=== PATIENT | male | born 1930 | race Caucasian/White ===

== ENCOUNTER 2016-10-04 18:49 | Inpatient (IN) | payer OTHER, BC ==
[~2016-10-04] VITALS: Ht 185.4 cm; Wt 83.0 kg
--- NOTE | ~2016-10-04 | HC ---
[facility] [place] [address] CONSULTATION Name: NATANAEL HERRERA Room #: 463-P ADM IN M.R.#: [id number] Admission: 10/04/16 Attend Phys: Edwin Baer MD Discharge: Date of : 31 Report #: [id number] THIS REPORT FOR: //name// CC: Edwin Baer REASON FOR CONSULTATION: Cardiomyopathy, atrial fibrillation, sluggishness, weakness is the reason for the consultation. HISTORY OF PRESENT ILLNESS: The patient is an 85-year-old gentleman with a complicated history including coronary artery disease with an acute inferior myocardial infarction complicated by heart block, atrial fibrillation and congestive heart failure. This was in 10/2015. He have been getting along. He has a solitary kidney. Now presents with several days of generalized malaise. He has had a nonproductive cough and low grade fevers. He saw Dr. Monreal on Thursday of last week and felt well at that time. He tells me that his last nuclear stress study was in either March or April and was nonischemic. He denies orthopnea or paroxysmal nocturnal dyspnea. His weights, he watches very closely and have been stable. No history of palpitations, near syncope, or syncope. He tells me that every family member that he has been around has had a viral infection. This lasted about 10 days to 2 weeks. He has been sleeping more than usual. This combination of symptoms is what has been seen with others in his family with the same viral type illness. ALLERGIES: No known drug allergies. MEDICATIONS: Include atorvastatin 40 mg daily, glimepiride 2 mg twice daily, Flomax, apixaban 2.5 mg twice daily, atenolol 25 mg daily, finasteride, torsemide 10 mg daily, digoxin. PAST MEDICAL HISTORY: Medical records have been reviewed and include a history of coronary artery disease, colon resection for cancer in 2001 and nephrectomy for renal cell cancer, adult onset of diabetes, chronic back pain. Ejection fraction was in the 40% range. SOCIAL HISTORY: He is , nonsmoker, nondrinker. FAMILY HISTORY: Unremarkable for premature coronary disease. REVIEW OF SYSTEMS: All systems negative except as that noted above. PHYSICAL EXAMINATION: GENERAL: A pleasant gentleman in no distress. VITAL SIGNS: Blood pressure is 120/61, heart rate is 60, temperature is 100.7 degrees. HEENT: There are neither xanthelasma, subcutaneous xanthomata, oral mucosal or digital cyanosis or kyphoscoliosis present. CHEST: Reveals clear lung sorenson. [address] [address] CONSULTATION Name: NATANAEL HERRERA BARATARIA Room #: 463-[facility] IN M.R.#: [id number] Admission: 10/04/16 Attend Phys: Edwin Baer MD Discharge: Date of : 31 Report #: [id number] CARDIOVASCULAR: Irregularly irregular rhythm with a normal S1, S2. No murmurs or rubs. ABDOMEN: Soft and nontender. EXTREMITIES: Without cyanosis, clubbing or edema. Radial pulses are 2+. NEUROLOGIC: He is alert with a nonfocal exam. EKG: Atrial fibrillation. LABORATORY DATA: Sodium 138, potassium 3.6, creatinine 2.2. ProBNP 5504. White cell count 7.1, hemoglobin 15, platelet count 90, 12%. Chest x-ray is no acute process. IMPRESSION: 1. Malaise, fatigue, low grade fevers, suspect underlying viral illness. 2. Moderate ischemic cardiomyopathy. 3. Chronic kidney disease; chronic, single kidney. 4. Dyslipidemia. 5. Hypertension. 6. Chronic systolic heart failure. RECOMMENDATIONS: 1. Obtain records from office regarding recent evaluation. 2. Continue usual cardiovascular medications. 3. I do not suspect a primary cardiac etiology to his presenting symptoms, but more likely viral syndrome. At this point, no further cardiovascular testing is needed. BNP elevation is anticipated in his age group with advanced kidney disease, clinically he does not have signs of significant volume overload. <ELECTRONICALLY SIGNED> By: Jackson Crawford MD, [facility] 10/06/16 1744 0858 1251 Jackson Crawford MD, FAC /nt
--- NOTE | ~2016-10-04 | EKG ---
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 : 1930 Requested By: Nicolas Crump Order Number: [id number] MD: Jackson Crawford Measurements Intervals [place] Rate: 79 P: MI: QRS: 8 QRSD: 93 T: 63 QT: 347 QTc: 398 Interpretive Statements Atrial fibrillation Nonspecific ST segment abnormality Compared to ECG 03/14/2016 15:21:53 No significant change was found Electronically Signed On 10-05-2016 11:51:45 CDT by Jackson Crawford [email or web address] <ELECTRONICALLY SIGNED> By: Jackson Crawford MD, [facility] 10/05/16 1151 99 99 Jackson Crawford MD, FAC /EPI
--- NOTE | ~2016-10-04 | H ---
[facility] [place] [address] HISTORY AND PHYSICAL Name: NATANAEL HERRERA Room #: 463-P [facility] IN M.R.#: [id number] Admission: 10/04/16 Attend Phys: Edwin Baer MD Discharge: 10/06/16 Date of : 31 Report #: [id number] THIS REPORT FOR: //name// CC: Edwin Baer DATE OF SERVICE: 10/05/2016 DATE OF ADMISSION: 10/04/2016 CHIEF COMPLAINT: Generalized weakness. HISTORY OF PRESENT ILLNESS: The patient is an 85-year-old male with underlying coronary artery disease and CHF who presented to the ER in the evening for generalized malaise and weakness. He has felt just had no energy. He has had some cough recently. His recently had an upper respiratory infection as well. PAST MEDICAL HISTORY: Significant for: 1. CHF. 2. Coronary artery disease. 3. Stent in 2014. 4. Prior colon cancer resection 2001. 5. Resection of the left kidney for renal cancer in 2006. 6. Diabetes mellitus. 7. BPH. 8. Atrial fibrillation, chronic. MEDICATIONS: Atorvastatin 40 mg a day, glimepiride 2 mg b.i.d., tamsulosin 0.4 mg a day, Eliquis 2.5 mg b.i.d., atenolol 20 mg a day, finasteride 5 mg a day, Colace 100 mg b.i.d., torsemide 10 mg a day, Tylenol p.r.n., digoxin 0.125 mg daily. REVIEW OF SYSTEMS: CONSTITUTIONAL: Positive for malaise. HEENT: No headaches, visual changes. CHEST: He has cough, he has shortness of breath and sputum production. No chest pain. GASTROINTESTINAL: No nausea, vomiting, diarrhea or constipation. GENITOURINARY: No burning or frequency. Does have BPH symptoms otherwise. EXTREMITIES: No significant swelling or joint pain. SKIN: No rashes or wounds. NEUROLOGIC: No new numbness or weakness. PHYSICAL EXAMINATION: VITAL SIGNS: Blood pressure 148/68, pulse 60, respiratory rate 18. He is afebrile. O2 sat was 99%, his weight is 193 pounds. [facility] [address] [place] [address] HISTORY AND PHYSICAL Name: NATANAEL HERRERA [place] Room #: 463-P [facility] IN M.R.#: [id number] Admission: 10/04/16 Attend Phys: Edwin Baer MD Discharge: 10/06/16 Date of : 31 Report #: [id number] GENERAL: The patient is awake and alert, feeling better this morning. He reports he is awake and alert. His mucous membranes are moist. NECK: Supple, without adenopathy, thyromegaly or bruits. CHEST: Shows decreased breath sounds in both bases. No focal crackles or wheezes. CARDIOVASCULAR: Irregular rate in the 80s. ABDOMEN: Obese, soft, nondistended, nontender, no masses. Bowel sounds are active. No hepatosplenomegaly. EXTREMITIES: Show no edema. Pulses are intact. SKIN: Grossly intact with no rashes or wounds. DIAGNOSTIC DATA: EKG showed AFib with rate of 71, no ST segment changes. LABORATORY DATA: Sodium 139, potassium 4.6, chloride 101, bicarbonate 13, BUN 22, creatinine 2.0, glucose 148. Troponin less than 0.04. BNP 4665. WBC 7.4, hemoglobin 15.9, hematocrit 46.1, platelet count 94, segs 81, lymphs 7, monos 11. Chest x-ray shows no acute process. ASSESSMENT: 1. Acute dyspnea. 2. Acute congestive heart failure, systolic, chronic. 3. Upper respiratory tract infection most likely viral. PLAN: We will admit, give IV Lasix. Consult Cardiology, renew his home meds. I suspect he showed improve. I think this is a viral infections has triggered his heart failure, is fairly mild. He is always showing excellent improvement in his symptoms and diuresing with the IV dose. We will get him ambulatory today and hopefully he will be discharged to home by tomorrow. We will monitor his electrolytes closely and also monitor his renal function. <ELECTRONICALLY SIGNED> By: Edwin Baer MD 10/09/16 0725 0730 1207 Edwin Baer MD /nt
--- NOTE | ~2016-10-04 | 2DMMODE ---
[facility] [address] [place] [address] 2 D/M-MODE ECHOCARDIOGRAM Name: NATANAEL HERRERA [place] Room #: 463-P [facility] IN M.R.#: [id number] Admission: 10/04/16 Attend Phys: Edwin Baer, Discharge: Date of : 31 Date of Service: 10/06/16 0939 Report #: [id number] THIS REPORT FOR: //name// APPROVED REPORT Study performed: 10/06/2016 08:54:33 EXAM: Comprehensive 2D, Doppler, and color-flow Echocardiogram Patient Location: Echo lab Room #: 463 Blood Pressure: 108/61 mmHg HR: 69 bpm Rhythm: Atrial Fibrillation Other Information Study Quality: Good Indications Ischemic cardiomyopathy. Hx: Stent, HTN, chronic afib, DM 2D Dimensions RVDd: 31.94 mm LVEF(%): 33.98 (>50%) IVSd: 14.34 (7-11mm) LVOT Diam: 22.64 (18-24mm) LVDd: 42.05 mm PWd: 10.25 (7-11mm) Ascending Ao: 37.40 (22-36mm) LVDs: 35.33 (25-40mm) Aortic Root: 36.69 mm Villasenor's LVEF: 33.98 % Volumes Left Atrial Volume (Systole) Single Plane 4CH: 61.89 mL Single Plane 2CH: 68.78 mL LA ESV Index: 35.00 mL/m2 Aortic Valve AoV Peak Reinaldo.: 2.08 m/s AO Peak Gr.: 17.47 mmHg LVOT Max P.11 mmHg AO Mean Gr.: 10.18 mmHg AO V2 Mean: 1.51 m/s LVOT Max V: 0.88 m/s AO V2 VTI: 40.19 cm CHARLIE Vmax: 1.70 cm2 [facility] [place] [address] 2 D/M-MODE ECHOCARDIOGRAM Name: NATANAEL HERRERA [place] Room #: 463-P [facility] IN M.R.#: [id number] Admission: 10/04/16 Attend Phys: Edwin Baer, Discharge: Date of : 31 Date of Service: 10/06/16 0939 Report #: [id number] Mitral Valve MV Decel. Time: 198.61 ms MV E Max Reinaldo.: 1.15 m/s IVRT: 56.52 ms Pulmonary Valve PV Peak Reinaldo.: 0.96 m/s PV Peak Gr.: 3.71 mmHg Tricuspid Valve TR Peak Reinaldo.: 2.54 m/s RAP Estimate: 5.00 mmHg TR Peak Gr.: 25.80 mmHg RVSP: 31.00 mmHg Left Ventricle The left ventricle is normal size. Mild inferoseptal hypokinesis Mild basal septal hypertrophy is present. Left ventricular systolic function is mildly decreased. LVEF is 45-50%. This study is not technically sufficient to allow evaluation of the LV diastolic function due to atrial fibrillation. Right Ventricle The right ventricle is normal size. The right ventricular systolic function is normal. Atria Left atrium is dilated. Right atrium is dilated. Aortic Valve Aortic valve is moderately calcified. Trace aortic regurgitation. Mild aortic stenosis. Mitral Valve Moderate mitral annular calcification. Moderate mitral regurgitation. Tricuspid Valve The tricuspid valve is normal in structure. There is mild tricuspid regurgitation. The right atrial pressure is estimated at 5 mmHg. There is mild pulmonary hypertension with an estiamted PAP of 31mmHg. Pulmonic Valve The pulmonary valve is normal in structure. Trace pulmonic regurgitation. Great Vessels The aortic root measures at the upper limits of normal. [facility] [address] [place] [address] 2 D/M-MODE ECHOCARDIOGRAM Name: NATANAEL HERRERA [place] Room #: 463-P [facility] IN .R.#: [id number] Admission: 10/04/16 Attend Phys: Edwin Baer, Discharge: Date of : 31 Date of Service: 10/06/16 0939 Report #: [id number] aorta measures at the upper limites of normal. IVC is normal in size and collapses >50% with inspiration. Pericardium There is no pericardial effusion. <Conclusion> Left ventricular systolic function is mildly decreased. Mild inferoseptal hypokinesis. LVEF 45-50%. Both atria are dilated. Aortic valve is moderately calcified. Mild aortic stenosis. Moderate mitral annular calcification. Moderate mitral regurgitation. Pulmonary artery presure of 30-35mmHg. There is no pericardial effusion. <ELECTRONICALLY SIGNED> By: Jackson Crawford MD, [facility] 10/06/16938 8 8 Jackson Crawford MD, FAC /INF
[~2016-10-04 18:49] MED LIST: AMARYL2 MG PO; ASPIR 8181 MG PO; ATORVASTATIN CA40 MG PO; AZITHROMYCIN 2250 MG PO; COLACE100 MG PO; COREG6.25 MG PO; DEMADEX20 MG PO; DIGOXIN125 MCG PO; ELIQUIS2.5 MG PO; FINASTERIDE5 MG PO; FLOMAX0.4 MG PO; PACERONE 200 M200 M1 PO; PLAVIX 75 MG TA75 M1 PO; PROSCAR 5MG TABL5 MG PO; TENORMIN50 MG PO; TYLENOL325 MG PO
[2016-10-04 18:57] VITALS: BP 148/68
[2016-10-04 20:05] LABS: BASOPHILS 0.7 % (0.0-2.0); EOSINOPHILS 0.9 % (0.0-3.0); HEMATOCRIT 46.1 % (42.0-52.0); HEMOGLOBIN 15.9 gm/dL (14.0-18.0); LYMPHOCYTES 6.7 % (24.0-44.0); MCHC 34.5 g/dL (28.0-37.0); MCV 98.8 fL (80.0-100.0); MONOCYTES 10.9 % (1.0-8.0); PLATELET COUNT 94 thou/uL (150-400); POLYS 80.8 % (36.0-66.0); RBC 4.67 mil/uL (4.50-6.00); RDW 14.2 % (10.5-14.5); WBC 7.4 thou/uL (4.0-11.0)
[2016-10-04 20:07] LABS: ANION GAP 8 mmol/L (7-16); BUN 22 mg/dL (7-18); CALCIUM 9.1 mg/dL (8.5-10.1); CHLORIDE 101 mmol/L (98-107); CO2 30 mmol/L (21-32); GLUCOSE 148 mg/dL (74-106); POTASSIUM 4.6 mmol/L (3.5-5.1); SODIUM 139 mmol/L (136-145)
[2016-10-04 20:08] LABS: MANUAL DIFF NO
[2016-10-04 20:19] LABS: NT-PRO BRAIN NAT PEPTIDE 4665 pg/mL (<300); TROPONIN-I < 0.04 ng/mL (<0.04-0.07)
[2016-10-04 22:19] VITALS: BP 147/120
[2016-10-04 23:05] VITALS: BP 150/95
[2016-10-05 05:23] VITALS: BP 117/77
[2016-10-05 05:30] LABS: HEMATOCRIT 45.7 % (42.0-52.0); HEMOGLOBIN 15.4 gm/dL (14.0-18.0); MCH 33.3 pg (26.0-34.0); MCHC 33.8 g/dL (28.0-37.0); MCV 98.5 fL (80.0-100.0); PLATELET COUNT 90 thou/uL (150-400); RBC 4.64 mil/uL (4.50-6.00); RDW 14.3 % (10.5-14.5); WBC 7.1 thou/uL (4.0-11.0)
[2016-10-05 05:40] LABS: MANUAL DIFF YES
[2016-10-05 05:41] LABS: CALCIUM 8.8 mg/dL (8.5-10.1); CREATININE 2.2 mg/dL (0.7-1.3)
[2016-10-05 05:55] LABS: POTASSIUM 3.6 mmol/L (3.5-5.1)
[2016-10-05 07:31] VITALS: BP 124/61
[2016-10-05 09:31] LABS: ABSOLUTE NEUTROPHILS 5.3 thou/uL (1.4-8.2); ATYPICAL LYMPHS 2 %; MYELOCYTES 1 %; TOTAL CELL COUNT 100
[2016-10-05 09:32] LABS: LARGE PLATELETS OCCASIONAL
[2016-10-05 11:32] VITALS: BP 122/76
[2016-10-05 15:30] VITALS: BP 114/73
[2016-10-05 20:20] VITALS: BP 112/65
[2016-10-06 04:12] VITALS: BP 100/67
[2016-10-06 04:35] LABS: CALCIUM 8.3 mg/dL (8.5-10.1); POTASSIUM 3.6 mmol/L (3.5-5.1)
[2016-10-06 07:14] VITALS: BP 108/61
[2016-10-06 07:48] LABS: HEMATOCRIT 44.2 % (42.0-52.0); HEMOGLOBIN 15.1 gm/dL (14.0-18.0); MCHC 34.3 g/dL (28.0-37.0); MCV 99.1 fL (80.0-100.0); RBC 4.46 mil/uL (4.50-6.00); RDW 14.3 % (10.5-14.5); WBC 5.8 thou/uL (4.0-11.0)
[2016-10-06 11:46] VITALS: BP 100/57
[2016-10-06 16:01] VITALS: BP 105/63
[2016-10-06 17:50] VITALS: BP 105/63
== END 2016-10-06 18:17 | disposition home or self-care (01) | DRG 291 ==
LOC: ER 18:49 → EROBS 21:52 → 4W 21:52
PROVIDERS: Family Medicine; Nurse Practitioner
DX: I13.0 Hypertensive heart and chronic kidney disease with heart failure and stage 1 through stage 4 chronic kidney disease, or unspecified chronic kidney disease (principal); I50.23 Acute on chronic systolic (congestive) heart failure; I48.2 Chronic atrial fibrillation; I25.5 Ischemic cardiomyopathy; I25.10 Atherosclerotic heart disease of native coronary artery without angina pectoris; M54.9 Dorsalgia, unspecified; G89.29 Other chronic pain; N18.9 Chronic kidney disease, unspecified; J01.90 Acute sinusitis, unspecified; E78.5 Hyperlipidemia, unspecified; E11.22 Type 2 diabetes mellitus with diabetic chronic kidney disease; N40.0 Benign prostatic hyperplasia without lower urinary tract symptoms; Z85.038 Personal history of other malignant neoplasm of large intestine; Z95.5 Presence of coronary angioplasty implant and graft; Z90.5 Acquired absence of kidney; Z85.528 Personal history of other malignant neoplasm of kidney; Z90.49 Acquired absence of other specified parts of digestive tract; Z79.899 Other long term (current) drug therapy; I25.2 Old myocardial infarction
CPT/HCPCS: 10045

== ENCOUNTER → 2017-02-17 | Outpatient (CLI) | payer OTHER, BC | LOC: ULTRA 08:14 | DX: K76.89 Other specified diseases of liver (principal) ==

== ENCOUNTER 2017-02-22 11:33 | Inpatient (IN) | payer OTHER, BC ==
[~2017-02-22] VITALS: Ht 182.9 cm; Wt 80.3 kg
--- NOTE | ~2017-02-22 | EKG ---
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: : 1930 Requested By: Travis Santos Order Number: [id number] MD: Nakul Pace Measurements Intervals [place] Rate: 64 P: MD: QRS: -9 QRSD: 99 T: 12 QT: 419 QTc: 433 Interpretive Statements Atrial fibrillation Inferoposterior infarct, old Baseline wander in lead(s) V5 Compared to ECG 10/04/2016 19:00:11 Myocardial infarct finding now present ST (T wave) deviation no longer present Electronically Signed On 02-22-2017 23:27:14 CDT by Nakul Pace [email or web address] <ELECTRONICALLY SIGNED> By: Nakul Pace MD 02/22/17 2327 1138 1138 Nakul Pace MD /EPI
--- NOTE | ~2017-02-22 | H ---
[facility] [place] [address] HISTORY AND PHYSICAL Name: NATANAEL HERRERA Room #: 418-P [facility] IN M.R.#: [id number] Admission: 02/22/17 Attend Phys: Edwin Baer MD Discharge: 02/23/17 Date of : 31 Report #: [id number] THIS REPORT FOR: //name// CC: EDWIN [facility]umjohn [facility] center[facility] DATE OF SERVICE: 02/22/2017 CHIEF COMPLAINT: Dizziness. HISTORY OF PRESENT ILLNESS: The patient is an 86-year-old male with history of hypertension, history of CHF chronic secondary to systolic dysfunction, history of coronary artery disease, history of kidney cancer and liver cancer, presented to the Emergency Room complaining of dizziness. The patient was recently diagnosed with hemochromatosis and underwent a phlebotomy on Thursday. He normally has some dizziness when he gets up in the morning. The dizziness gets better when he sits at the side of the bed for a few minutes. Today, his dizziness persisted, which made him come to the Emergency Room. No history of any chest pain, no shortness of breath. No fever or chills. The patient denies any cough, expectoration. No nausea or vomiting, no abdominal pain. According to the patient's , the patient has had poor p.o. intake over the last few days. In the Emergency Room, his blood pressure was 131/63, EKG showed no acute abnormality. He does have history of atrial fibrillation. He was found to be orthostatic in the ER and the patient has been started on gentle IV fluid in the ER. The patient denies any focal numbness or weakness of the extremities. PAST MEDICAL HISTORY: Significant for CHF, last echocardiogram showed an EF of 40-45%, history of coronary artery disease status post stent in 2014, history of colon cancer resection in 2001, history of dissection of the left kidney for renal cancer in 2006, recently diagnosed with liver cancer and underwent a partial resection at [facility], history of cholecystectomy, history of diabetes, history of BPH, history of chronic atrial fibrillation. HOME MEDICATIONS: Reviewed, please look at the nursing documentation for home medications. ALLERGIES: No known drug allergies. SOCIAL HISTORY: No smoke, alcohol abuse, or illicit drug abuse. FAMILY HISTORY: Noncontributory for this 86-year-old male. REVIEW OF SYSTEMS: CONSTITUTIONAL: He has lost some weight, unable to quantify. No fever or chills. [facility] [address] [place] [address] HISTORY AND PHYSICAL Name: NATANAEL HERRERA Room #: 418-P DIS IN M.R.#: [id number] Admission: 02/22/17 Attend Phys: Edwin Baer MD Discharge: 02/23/17 Date of : 31 Report #: [id number] EYES: No change in vision. THROAT: Denies any sore throat. EAR: Denies any tinnitus or pain in his ear. He has reduced hearing since 2011. CARDIOVASCULAR: Denies any chest pain, no shortness of breath. RESPIRATORY: No cough or expectoration. GASTROINTESTINAL: No nausea, vomiting, abdominal pain. GENITOURINARY: No dysuria, hematuria. NEUROLOGIC: No focal numbness or weakness of the extremities. PSYCHIATRIC: No anxiety or depression. A 12-point review of system is negative other than the positive and negative dictated in the history of present illness and the review of system. PHYSICAL EXAMINATION: VITAL SIGNS: Revealed blood pressure ____, heart rate of 82 per minute, afebrile. GENERAL: The patient is awake and alert, not in acute respiratory distress. EYES: Pupils equal, reactive to light, nonicteric conjunctivae. THROAT: Appears normal. NECK: Supple, no JVD, no bruit, no lymphadenopathy. CARDIOVASCULAR: S1, S2. ____ S3, no murmur. CHEST: Bilateral air entry present, clear on auscultation. ABDOMEN: Soft, bowel sounds present. No mass, no organomegaly, no tenderness. PERIPHERY: No pedal edema. No calf tenderness. Dorsalis pedis 1+. NEUROLOGICAL: Pupils are equal, reactive to light. Extraocular movements intact. No facial asymmetry noted. Power is 5/5 in upper and lower extremity, no obvious sensory deficit noted. LABORATORY DATA: Reviewed. White count is 6.1, hemoglobin is 13.0, platelet is 110. He has chronic thrombocytopenia. His chemistry showed a BUN of 27, creatinine of 1.9. His baseline creatinine is 1.8. Blood glucose was 250. The BNP was 3100. He has chronically elevated BNP. EKG showed atrial fibrillation with inferoposterior infarct, rate is at [address] of the brain showed no acute abnormality. Chest x-ray showed no acute cardiopulmonary process. ASSESSMENT AND PLAN: 1. Dizziness, likely secondary to orthostatic hypotension. Could be related to his recent phlebotomy with reduced p.o. intake. We will hold off on his diuretics today. We will gently give him 500 mL normal saline and monitor his orthostasis. He will be monitored on telemetry floor. We will consult Cardiology. We will get serial troponin to rule out any cardiac event. 2. Atrial fibrillation. The patient will be continued on atenolol on Eliquis. 3. History of hypertension, on atenolol. This will be continued. 4. Diabetes. The patient will be continued on his present home medication. He will be placed on Accu-Chek and sliding scale insulin. 5. History of coronary artery disease status post stent in the past. [facility] [address] [place] [address] HISTORY AND PHYSICAL Name: NATANAEL HERRERA WILDROSE Room #: 418-P DIS IN M.R.#: [id number] Admission: 02/22/17 Attend Phys: Edwin Baer MD Discharge: 02/23/17 Date of : 31 Report #: [id number] 6. Deep venous thrombosis prophylaxis. The patient is on Eliquis. Treatment plan has been explained to the patient and the family at bedside in detail. <ELECTRONICALLY SIGNED> By: Issac Reno MD 02/23/17 1221 1305 1357 Issac Reno MD /nt
--- NOTE | ~2017-02-22 | HC ---
[facility] [place] [address] CONSULTATION Name: NATANAEL HERRERA Room #: 418-P ADM IN M.R.#: [id number] Admission: 02/22/17 Attend Phys: Edwin Baer MD Discharge: Date of : 31 Report #: [id number] THIS REPORT FOR: //name// CC: Edwin Begumssm health careahmet DATE OF SERVICE: 02/22/2017 INDICATION: Dizziness. HISTORY OF PRESENT ILLNESS: This is an 86-year-old gentleman presenting with complaints of dizziness starting this morning. Normally he gets dizziness when he stands up, lasting 2-3 seconds. Today, it persisted and he presented to the ER for evaluation. He denies any episodes of chest pains, shortness of breath, fever, chills or cough. There is no history of congestion. He was recently diagnosed with hemochromatosis and underwent his first phlebotomy last Thursday, with removal of 1 pint. Over the last 2 days, he has been on a trip and has had diminished p.o. intake. PAST MEDICAL HISTORY: CAD with inferior wall DC in 2014, undergoing placement of a stent to the left circumflex artery. His last nuclear stress test was in March 2016, revealing old inferior wall, inferolateral infarct. History of chronic AFib. History of chronic renal insufficiency with a solitary kidney. History of congestive heart failure with EF in the 45% range. Recently diagnosed with liver cancer, undergoing resection at [facility]. HOME MEDICATIONS: Please see the MAR for full details. ALLERGIES: None. SOCIAL HISTORY: Negative for tobacco use. FAMILY HISTORY: Negative for premature CAD. REVIEW OF SYSTEMS: A full 10-point review of systems performed. Only the pertinent positives and negatives are described in the HPI. PHYSICAL EXAMINATION: VITAL SIGNS: Blood pressure is 110/60, heart rate is 60 beats per minute. GENERAL APPEARANCE: An elderly appearing male in no acute respiratory distress. HEAD AND EYES: Normocephalic. Sclerae are anicteric. ENT: Oral mucosa moist. NECK: Supple, no JVD. LUNGS: Clear to auscultation. CARDIAC: Irregularly irregular. S1, S2 positive. ABDOMEN: Soft, nontender. Bowel sounds positive. [facility] [address] [place] [address] CONSULTATION Name: NATANAEL HERRERA [place]AM Room #: 418-P ADM IN M.R.#: [id number] Admission: 02/22/17 Attend Phys: Edwin Baer MD Discharge: Date of : 31 Report #: [id number] EXTREMITIES: No cyanosis, no edema. DIAGNOSTIC DATA: ECG reveals atrial fibrillation with a slow ventricular rate, nonspecific T-wave abnormalities. LABORATORY DATA: White count 6.1, hemoglobin is 13. Sodium is 147, creatinine is 1.9 at baseline, troponin is negative. ASSESSMENT AND PLAN: 1. Orthostatic hypotension/dizziness. He was found to have orthostatic blood pressure readings in the ER and treated with IV hydration. Probably due to a combination of his first phlebotomy, diuretic therapy and diminished oral intake. At this time, I would hold torsemide, as he has not exhibited any recent episodes of heart failure and he appears to be euvolemic on examination. 2. Coronary artery disease with prior history of myocardial infarction, clinically stable with no symptoms of angina. 3. Atrial fibrillation, rate control, continue with low dose beta lety and anticoagulation therapy. 4. Congestive heart failure, stable with no symptoms of congestion. 5. Diabetes mellitus. 6. Chronic renal insufficiency. Thank you for allowing me to participate in the care of your patient. <ELECTRONICALLY SIGNED> By: Bret Lopez MD 02/23/17 0830 1633 1729 Bret Lopez MD /nt
[2017-02-22 11:33] VITALS: BP 131/63
[2017-02-22 11:58] LABS: HEMATOCRIT 38.3 % (42.0-52.0); MCH 33.5 pg (26.0-34.0); MCHC 33.9 g/dL (28.0-37.0); MCV 98.9 fL (80.0-100.0); RBC 3.87 mil/uL (4.50-6.00); RDW 14.2 % (10.5-14.5); WBC 6.1 thou/uL (4.0-11.0)
[2017-02-22 12:07] LABS: ANION GAP 6 mmol/L (7-16); BUN 27 mg/dL (7-18); CALCIUM 8.5 mg/dL (8.5-10.1); CHLORIDE 104 mmol/L (98-107); CO2 27 mmol/L (21-32); CREATININE 1.9 mg/dL (0.7-1.3); GLUCOSE 250 mg/dL (74-106); SODIUM 137 mmol/L (136-145)
[2017-02-22 12:08] LABS: POTASSIUM 4.1 mmol/L (3.5-5.1)
[2017-02-22 12:16] LABS: TROPONIN-I < 0.04 ng/mL (<0.04-0.07)
[2017-02-22 13:24] VITALS: BP 109/51
[2017-02-22 16:30] VITALS: BP 113/63
[2017-02-22 16:33] VITALS: BP 109/68
[2017-02-22 16:35] VITALS: BP 108/57
[2017-02-22 19:45] LABS: ALBUMIN 3.1 g/dL (3.4-5.0); DIRECT BILIRUBIN 0.1 mg/dL (<0.1-0.3); TOTAL BILIRUBIN 0.4 mg/dL (<0.1-1.0); TOTAL PROTEIN 5.8 g/dL (6.4-8.2)
[2017-02-22 20:00] VITALS: BP 106/62
[2017-02-23 04:31] VITALS: BP 131/51
[2017-02-23 06:15] LABS: ABSOLUTE NEUTROPHILS 4.2 thou/uL (1.4-8.2); EOSINOPHILS 3.8 % (0.0-3.0); HEMATOCRIT 36.1 % (42.0-52.0); HEMOGLOBIN 12.1 gm/dL (14.0-18.0); LYMPHOCYTES 19.2 % (24.0-44.0); MCH 33.6 pg (26.0-34.0); MCHC 33.5 g/dL (28.0-37.0); MCV 100.3 fL (80.0-100.0); MONOCYTES 9.8 % (1.0-8.0); PLATELET COUNT 102 thou/uL (150-400); POLYS 66.2 % (36.0-66.0); RDW 14.4 % (10.5-14.5); WBC 6.4 thou/uL (4.0-11.0)
[2017-02-23 06:16] LABS: MANUAL DIFF NO
[2017-02-23 06:26] LABS: CALCIUM 8.4 mg/dL (8.5-10.1); CREATININE 1.6 mg/dL (0.7-1.3); POTASSIUM 3.6 mmol/L (3.5-5.1)
[2017-02-23 06:27] LABS: MAGNESIUM 1.9 mg/dL (1.8-2.4)
[2017-02-23 07:24] VITALS: BP 112/66
[2017-02-23 10:14] VITALS: BP 112/66
== END 2017-02-23 11:02 | disposition home or self-care (01) | DRG 312 ==
LOC: ER 11:33 → EROBS 12:41 → 4E 12:41 → ENTRNSPT 02-23 10:48 → EDTRNSPTSTS 02-23 10:50 → 4E 02-23 11:02
PROVIDERS: Emergency Medicine; Internal Medicine
DX: I95.1 Orthostatic hypotension (principal); N17.9 Acute kidney failure, unspecified; E44.1 Mild protein-calorie malnutrition; I50.9 Heart failure, unspecified; N18.9 Chronic kidney disease, unspecified; I25.10 Atherosclerotic heart disease of native coronary artery without angina pectoris; I48.2 Chronic atrial fibrillation; E11.22 Type 2 diabetes mellitus with diabetic chronic kidney disease; N40.0 Benign prostatic hyperplasia without lower urinary tract symptoms; E86.0 Dehydration; I25.2 Old myocardial infarction; Z95.5 Presence of coronary angioplasty implant and graft; Z85.038 Personal history of other malignant neoplasm of large intestine; Z90.5 Acquired absence of kidney; Z79.899 Other long term (current) drug therapy; Z85.05 Personal history of malignant neoplasm of liver; Z90.49 Acquired absence of other specified parts of digestive tract
CPT/HCPCS: 10183

== ENCOUNTER 2018-11-03 19:14 | Emergency (ER) | payer OTHER, BC ==
[~2018-11-03] VITALS: Ht 185.4 cm; Wt 83.0 kg
[~2018-11-03 19:14] MED LIST changes: +VITAMIN D1000 UNI1 PO
[2018-11-03] MEDS ORDERED: CENTRUM SILVER1 EAC2 PO (20:24)
[2018-11-03 21:30] VITALS: BP 140/77
== END 2018-11-03 21:26 | disposition home or self-care (01) ==
LOC: ER 19:14
DX: S83.8X2A Sprain of other specified parts of left knee, initial encounter (principal); I10 Essential (primary) hypertension; E11.9 Type 2 diabetes mellitus without complications; E78.5 Hyperlipidemia, unspecified; I48.2 Chronic atrial fibrillation; Z85.05 Personal history of malignant neoplasm of liver; Z90.5 Acquired absence of kidney; Z90.49 Acquired absence of other specified parts of digestive tract; Z85.528 Personal history of other malignant neoplasm of kidney; Z85.54 Personal history of malignant neoplasm of ureter; X58.XXXA Exposure to other specified factors, initial encounter; Y92.89 Other specified places as the place of occurrence of the external cause; Y93.89 Activity, other specified; Y99.8 Other external cause status

== ENCOUNTER → 2018-11-05 | Outpatient (CLI) | payer OTHER, BC ==
[~2018-11-05] MED LIST changes: +CENTRUM SILVER1 EAC2 PO
== END ==
LOC: MRI 08:46
DX: S83.282A Other tear of lateral meniscus, current injury, left knee, initial encounter (principal); M94.262 Chondromalacia, left knee; M25.462 Effusion, left knee; M71.22 Synovial cyst of popliteal space [Baker], left knee; X58.XXXA Exposure to other specified factors, initial encounter; Y93.89 Activity, other specified; Y92.89 Other specified places as the place of occurrence of the external cause; Y99.8 Other external cause status

== ENCOUNTER → 2019-08-05 | Outpatient (CLI) | payer OTHER, BC | LOC: MRI 07:00 | DX: M51.27 Other intervertebral disc displacement, lumbosacral region (principal); M47.817 Spondylosis without myelopathy or radiculopathy, lumbosacral region; M48.061 Spinal stenosis, lumbar region without neurogenic claudication ==

== ENCOUNTER → 2019-08-17 | Outpatient (CLI) | payer OTHER, BC | LOC: SJCVC 13:29 | DX: I25.10 Atherosclerotic heart disease of native coronary artery without angina pectoris (principal); I48.91 Unspecified atrial fibrillation; I25.5 Ischemic cardiomyopathy; I13.0 Hypertensive heart and chronic kidney disease with heart failure and stage 1 through stage 4 chronic kidney disease, or unspecified chronic kidney disease; E11.22 Type 2 diabetes mellitus with diabetic chronic kidney disease; N18.9 Chronic kidney disease, unspecified; I50.32 Chronic diastolic (congestive) heart failure; I50.20 Unspecified systolic (congestive) heart failure; E78.00 Pure hypercholesterolemia, unspecified; D68.59 Other primary thrombophilia; I35.0 Nonrheumatic aortic (valve) stenosis; I25.2 Old myocardial infarction; Z79.899 Other long term (current) drug therapy ==

== ENCOUNTER → 2019-09-14 | Outpatient (CLI) | payer OTHER, BC ==
[~2019-09-14] VITALS: Ht 185.4 cm; Wt 83.9 kg
[~2019-09-14] MED LIST changes: +ATENOLOL 25 MG25 M1 PO; -TENORMIN50 MG PO
--- NOTE | ~2019-09-14 | HPC ---
[facility] [place] [address] PAIN MANAGEMENT CONSULTATION Name: NATANAEL HERRERA Room #: REG CLMatthew Fuentes.#: [id number] Admission: 09/14/19 Attend Phys: Raz Mcclain DO Discharge: Date of : 31 Report #: [id number] THIS REPORT FOR: cc: Edwin Baer MD, Neal A. MD Johnson, James E. DO ~ CC: Raz Baer MD DATE OF SERVICE: 09/14/2019 REFERRING PHYSICIAN: Edwin Baer MD CHIEF COMPLAINT: Axial back pain. HISTORY OF PRESENT ILLNESS: As you know, the patient is an 88-year-old male who reports longstanding history of axial back pain that began in 2014. The patient denies specific injury or trauma that may have led to symptom development. He has trialled conservative treatment options including physical therapy, rest, relaxation, but has been precluded from utilizing the medication of choice to address facet arthropathy pain due to the use of chronic anticoagulant secondary to cardiovascular issues. He continues to experience pain for which he places pain up to a level of 7/10. Due to lack of improvement with more conservative treatment options, the patient was subsequently referred to our clinic. The patient has had physical therapy in 2014, but does not participate in these activities consistently. He underwent cardiovascular physical therapy as well, but does not participate in any of these activities either. He has been referred to our clinic to discuss treatment options for chronic axial back pain. The patient reports today his pain is periodic, describes the pain as aching, places current pain score at around 8/10, daily average of 8/10, worst pain has been is 10/10. The patient states that pain is exacerbated with prolonged standing, prolonged lifting or physical activity, improves with sitting. He has been referred to our clinic to discuss treatment options for axial back pain. PAST MEDICAL HISTORY: 1. Diabetes mellitus type 2. 2. Coronary artery disease, status post percutaneous stenting and chronic anticoagulation. 3. Liver cancer. 4. Colon cancer. 5. Bladder cancer. 6. Kidney cancer. 7. Degenerative joint disease. 8. Osteoarthritis. [facility] [address] [place] [address] PAIN MANAGEMENT CONSULTATION Name: NATANAEL HERRERA URBANDALE Room #: REG CLI Lauren.#: [id number] Admission: 09/14/19 Attend Phys: Raz Mcclain DO Discharge: Date of : 31 Report #: [id number] PAST SURGICAL HISTORY: 1. Colon surgery. 2. Bladder surgery. 3. Nephrectomy. 4. Percutaneous stenting of the coronary arteries. 5. Liver surgery. SOCIAL HISTORY: The patient denies current tobacco use. Denies IV or illicit drug use. Denies any chronic alcohol use. He is retired, retired years ago. He is not receiving workmen's compensation nor is he trying to obtain disability benefits. He is not in litigation in regards to pain. REVIEW OF SYSTEMS: Positive for cataracts, hearing loss with tinnitus, heart trouble status post percutaneous stenting and chronic anticoagulation, nocturia, nephrolithiasis, fatigue and weakness, non-insulin dependent diabetes. All other review of systems negative per 12-point review of systems other than those listed in history of present illness. Pain impact score 20/70 indicating mild interference of daily activities secondary to pain. ALLERGIES: No known drug allergies. CURRENT MEDICATIONS: Multivitamin 1 tab per day, torsemide 20 mg once a day. Finasteride 5 mg once a day, atenolol 25 mg once a day, Eliquis 2.5 mg b.i.d., tamsulosin 0.4 mg once a day, glimepiride 2 mg twice a day, atorvastatin 40 mg once a day. IMAGING: MRI lumbar spine obtained 08/05/2019, shows severe facet arthrosis at L4-L5 and L5-S1. There is no central canal stenosis, no neural foraminal stenosis. PQRS: The patient has known arthritic changes of the lumbar spine. No rheumatoid arthritis. He is placing pain intensity at 8/10. He is not a fall risk, has not had a fall in last 3 months. He is on blood thinners in the form of Eliquis taking twice a day. He is treated for hypertension, but not on any opioids and is not on any opioids for pain. He has a low opioid addiction potential. Pain impact score 20/70 indicating mild interference of daily activities secondary to pain. PHYSICAL EXAMINATION: VITAL SIGNS: Blood pressure 118/74, pulse 72, respiratory rate 16 and unlabored. The patient is 98% on room air, height 6 feet 1 inch tall, weight 285 pounds, BMI calculated 24.4. GENERAL: Well-developed, well-nourished, well-hydrated 88-year-old male [address] [address] PAIN MANAGEMENT CONSULTATION Name: NATANAEL HERRERA IRENE Room #: REG MAMADOU Cardenas#: [id number] Admission: 09/14/19 Attend Phys: Raz Mcclain, DO Discharge: Date of : 31 Report #: [id number] appearing stated age, pain is rated at 8/10. Speech fluent. The patient deemed a good historian. HEENT: Normocephalic, atraumatic. Pupils equal, round, reactive to light. LUNGS: Appear clear. The patient is providing no difficulty with completing full sentences. There is no cough or prolonged or tachypneic breathing. ABDOMEN: Appears soft, nontender. EXTREMITIES: Show no clubbing, no cyanosis, no edema. MUSCULOSKELETAL: Lower extremity strength is equal and symmetrical 5/5, intact to light touch from L1 through S2 dermatomes. Seated straight leg raising negative. Supine straight leg raising negative. Ana's test is negative. Modified Gaenslen's positive for axial low back pain. Lumbar provocation testing including extension, rotation, lateral flexion all intensify axial back pain with moderate restriction of motion. Forward flexion of lumbar spine does improve axial back pain. ASSESSMENT: 1. Lumbosacral spondylosis without radiculopathy. 2. Facet arthropathy of the lumbar spine. 3. Lumbar degeneration. 4. Chronic intractable pain. PLAN: 1. Based on today's physical exam and history the patient has provided, the description the patient uses in regards to pain and the location of symptoms, likely source of the patient's symptoms is the facet arthropathy pain. This is confirmed by MRI obtained 08/05/2019, which showed severe facet arthropathy changes at L4-L5 and L5-S1. I am pleased to advise the patient that the MRI shows no significant central canal neural foraminal stenosis. The patient and I discussed at length today the findings of his MRI and how it correlates to his symptoms. After this discussion, we discussed the potential treatment options we have for facet arthropathy pain. The following was discussed with the patient today. We discussed physical therapy, stretching exercises and core strengthening as a treatment course. This would be the most effective way to treat long-term symptoms. We discussed medication management utilizing low dose opioids for pain control as the patient is a non-candidate for nonsteroidal anti-inflammatories, the medication of choice for facet arthropathy pain. We discussed intra-articular facet injections, but given the extent and severity of the facet joints, these may be extremely difficult for the patient to tolerate and will likely provide minimal benefit from a long-term standpoint. We discussed medial branch nerve blocks and radiofrequency lesioning and then we discussed surgical options. After reviewing risks and benefits of all proposed treatment options, the patient chose to look towards medial branch blocks and radiofrequency lesioning. 2. 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 [address] PAIN MANAGEMENT CONSULTATION Name: NATANAEL HERRERA URBANDALE Room #: REG MAMADOU Cardenas#: [id number] Admission: 09/14/19 Attend Phys: Raz Mcclain DO Discharge: Date of : 31 Report #: [id number] 10/12/2019. He wishes to undergo the evaluation for which he will undergo an echocardiogram and an echo stress test. Once those results have been made available he would then consider the option of undergoing treatment from our standpoint as he does note he has to come off his Eliquis 3 days prior to the medial branch blocks and 3 days prior to radiofrequency lesioning, a total off of medication of 3 different times over a couple of week period. He will discuss this with Dr. Monreal. He was given information in regards to the release of medications for 3 days prior to each procedure to get confirmation, he could do so. 3. We did discuss the possibility of changing medications at this time. The patient does not wish to entertain medication management. He wishes to look towards more interventional treatments as presented above. 4. We wish to thank Dr. Baer for the referral of this patient to our clinic. We will keep you apprised of his response to treatment. We will await the patient's phone call after his visit with Dr. Monreal to establish the next appointment to begin medial branch nerve blocks and radiofrequency lesioning. 5. Again, we wish to thank Dr. Baer for the opportunity to see this patient in consultation. We will keep you apprised of response to treatment. By: [id number] Raz Mcclain DO /nt
[2019-09-14 13:00] VITALS: BP 118/74
--- NOTE | 2019-09-14 13:21 | NUR ---
Pain Clinic Assessment: 1. History of Osteoarthritis: NONE History of Rheumatoid Arthritis: NONE 2. Height: 6 ft. 1 in. 185.4 cm. Weight: 185.0 lb. oz. 83.916 kg. Patient's BMI: 24.4 3. Vital Signs: BP: 118/74 Pulse: 72 Resp: 16 Temp: 02 Sat: 98 ECG Mon: 4. Pain Intensity: 8 5. Fall Risk: Dizziness: Y Needs help standing or walking: N Fallen in the last 3 months: N Fall risk comments: 6. Patient on Blood Thinner: ELIQUIS 2.5 BID 7. History of Hypertension: Y 8. Opioid Therapy greater than 6 weeks: N Opiate Contract Signed: 9. Risk Assessment Tool Provided: 0-LOW RISK 10. Functional Assessment Tool: 11. Recreational Drug Use: Never Drug Type: Tobacco Use: Never Smoker Tobacco Type: Amount or Packs/day: How Many Years: Alcohol Use: No Frequency: Quant:
== END ==
LOC: PAIN 07:53
DX: M47.817 Spondylosis without myelopathy or radiculopathy, lumbosacral region (principal); M47.816 Spondylosis without myelopathy or radiculopathy, lumbar region; G31.89 Other specified degenerative diseases of nervous system; E11.9 Type 2 diabetes mellitus without complications; G89.29 Other chronic pain; Z98.890 Other specified postprocedural states; Z85.038 Personal history of other malignant neoplasm of large intestine; Z85.05 Personal history of malignant neoplasm of liver; Z85.51 Personal history of malignant neoplasm of bladder; Z85.528 Personal history of other malignant neoplasm of kidney; Z85.89 Personal history of malignant neoplasm of other organs and systems; Z79.899 Other long term (current) drug therapy

== ENCOUNTER → 2019-10-12 | Outpatient (CLI) | payer OTHER, BC | LOC: SJCVCIMAG 08:15 | DX: Z01.818 Encounter for other preprocedural examination (principal); I08.3 Combined rheumatic disorders of mitral, aortic and tricuspid valves; I42.9 Cardiomyopathy, unspecified; I48.21 Permanent atrial fibrillation; I25.5 Ischemic cardiomyopathy; I12.9 Hypertensive chronic kidney disease with stage 1 through stage 4 chronic kidney disease, or unspecified chronic kidney disease; N18.9 Chronic kidney disease, unspecified; I25.10 Atherosclerotic heart disease of native coronary artery without angina pectoris; Z79.899 Other long term (current) drug therapy ==

== ENCOUNTER → 2019-10-18 | Outpatient (CLI) | payer OTHER, BC ==
[~2019-10-18] VITALS: Ht 185.4 cm; Wt 85.7 kg
--- NOTE | ~2019-10-18 | HPC ---
[facility] [address] [place] [address] PAIN MANAGEMENT CONSULTATION Name: NATANAEL HERRERA Room #: REG CLI Gina.#: [id number] Admission: 10/18/19 Attend Phys: Raz Mcclain DO Discharge: Date of : 31 Report #: [id number] THIS REPORT FOR: cc: Edwin Baer MD, Neal A. MD Johnson, James E. DO ~ CC: Raz Baer MD DATE OF SERVICE: 10/18/2019 REFERRING PHYSICIAN: Edwin Baer MD CHIEF COMPLAINT: Axial back pain. HISTORY OF PRESENT ILLNESS: As you know, the patient is an 89-year-old male returning in followup visit to undergo bilateral medial branch nerve blocks to begin the process of possible radiofrequency lesioning of the medial branch nerves of the lumbar spine to address facet arthropathy. The patient has been allowed to discontinue his anticoagulant in preparation for the procedure today. 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 He returns today in followup visit stating a pain level of around 3/10 up to 8/10 depending on activity to undergo medial branch nerve blocks at L3, L4, L5, to address lumbar facet arthropathy. ALLERGIES: No known drug allergies. CURRENT MEDICATIONS: Atorvastatin, glimepiride, tamsulosin, atenolol, finasteride, torsemide, and multivitamins. SOCIAL HISTORY: The patient denies tobacco use. Denies IV or illicit drug use. Denies any chronic alcohol use. He is retired, retired years ago, unaccompanied today. IMAGING: No new imaging available. PQRS: The patient has known arthritic changes of the lumbar spine. No rheumatoid arthritis. He is placing current pain score anywhere from 2/10 to 8/10 depending on activity. He is not a fall risk, nor does he had a fall in last 3 months. He is on blood thinners in the form of Eliquis, but discontinued the medication 3 days ago in preparation for today's procedure. He is treated for hypertension. He is not on any chronic opioids, has a low opioid addiction potential. Pain impact score is 20/70, [id number] interference of daily activities secondary to pain. [address] [address] PAIN MANAGEMENT CONSULTATION Name: NATANAEL HERRERA Room #: REG CL Theresa#: [id number] Admission: 10/18/19 Attend Phys: Raz Mcclain DO Discharge: Date of : 31 Report #: [id number] PHYSICAL EXAMINATION: VITAL SIGNS: Blood pressure 135/89, pulse is 59, respiratory rate 16 and unlabored. The patient is 100% on room air. Height 6 feet 1 inch tall, weight 189 pounds, BMI calculated 24.9. GENERAL: Well-developed, well-nourished, well-hydrated, thin, 89-year-old male appearing stated age. He is placing current pain score today 2/10 to 8/10 depending on activity. HEENT: Normocephalic, atraumatic. Pupils equal, round and reactive. Extraocular muscles are intact. Sclerae nonicteric without injection. EXTREMITIES: Show no clubbing, no cyanosis, no edema. MUSCULOSKELETAL: Lower extremity strength equal and symmetrical 5/5, intact to light touch from L1 through S2 dermatomes. Seated straight leg raising negative. Supine straight leg raising negative. Lumbar provocation testing is met with increase in pain. Modified Gaenslen's positive for axial low back pain. ASSESSMENT: 1. Lumbosacral spondylosis without current radicular symptoms. 2. Facet arthropathy of the lumbar spine. 3. Lumbar degeneration. 4. Chronic intractable pain. PLAN: 1. The patient returns today in followup visit having received authorization to discontinue his Eliquis in preparation for a medial branch nerve block to be performed bilaterally. The patient has been advised the risks and benefits of the bilateral L3, L4, L5 medial branch block #1. These risks include but are not necessarily limited to bleeding, bruising, infection, worsening pain, no relief of pain, also risk of temporary or permanent muscle weakness, temporary or permanent nerve damage, possible paralysis and . The patient states he understood and wished to proceed. 2. The patient received excellent benefit with the medial branch block today. Prior to his discharge from our service, he was reporting pain anywhere from 3/10 to 8/10 depending on activity, his pain upon discharge 1/10 without exacerbation of symptoms. Given the fact that he showed excellent improvement initially, we will schedule him back for a possible second in series of medial branch blocks at our appointment time next week. He will contact our clinic to advise us the effects on daily activity from a pain management standpoint with this therapy. 3. We will see the patient back in followup visit in 1 week for possible next in the series of medial branch blocks with progression towards radiofrequency lesioning if successful. PROCEDURE NOTE: Bilateral L3, L4, L5 medial branch blocks under fluoroscopic guidance. [address] [address] PAIN MANAGEMENT CONSULTATION Name: NATANAEL HERRERA Room #: REG CLMatthew Cardenas#: [id number] Admission: 10/18/19 Attend Phys: Raz RoberosnLauren JohnyDO Discharge: Date of : 31 Report #: [id number] This is the first of 2 diagnostic medial branch blocks on the left and right sides that the patient is undergoing. After obtaining written consent, the patient was taken back to the fluoroscopy suite and placed in a prone position on the fluoroscopy table with a pillow under the abdomen to decrease the lumbar lordosis. The skin overlying the lumbosacral area was prepped and draped in an aseptic fashion. The L4 transverse process corresponding the L3 medial branch nerve and the L5 transverse process corresponding the L4 medial branch nerve on the right and left sides was visualized under AP fluoroscopy. The skin and subcutaneous tissue overlying the target site(s) of injection was anesthetized using 2 mL of 1% lidocaine. A 22-gauge 3-1/2 inch spinal needle with a bent tip was advanced under fluoroscopic guidance using a superior to inferior and lateral to medial approach to the dorsal, superior and medial aspect of the base of the transverse process(es). The needles were then directed ventral, medial and caudad to reach the target location(s). An oblique view facilitated needle placement with properly positioned needles(s) in the middle of the "eye" of the Leighton dog for the medial branch block(s). At each site the needle(s) rested on periosteum. After negative aspiration for heme or CSF, 0.2 mL of Omnipaque dye was injected at each site under live fluoroscopy, demonstrating absence of vascular uptake. After negative aspiration for heme or CSF, 0.5 mL of bupivacaine 0.5% was slowly injected at each site to avoid forcing the solution away from the target points(s). The needle(s) were then removed. The L5 dorsal ramus block on the right and left sides was performed using a slightly oblique approach under fluoroscopic guidance, placing the needle within the groove between the sacral site and the superior articular process of S1. The needle rested on periosteum. After negative aspiration for heme or CSF, 0.2 mL of Omnipaque dye was injected at under live fluoroscopy, demonstrating absence of vascular uptake. After negative aspiration for heme or CSF, 0.5 mL of bupivacaine 0.5% was slowly injected to avoid forcing the solution away from the target point. The needle was then removed. Sterile bandages were placed over the injection site. There were no apparent complications. The patient tolerated the procedure well and was carefully escorted to the recovery room in stable condition. The VAS was 3/10 to 8/10 before the procedure and 1/10 ten minutes after the procedure. After meeting discharge criteria, the patient was discharged home. By: [id number] Raz Mcclain DO /nt
[2019-10-18 12:34] VITALS: BP 135/89
--- NOTE | 2019-10-18 12:39 | NUR ---
Pain Clinic Assessment: 1. History of Osteoarthritis: LUMBAR SPINE History of Rheumatoid Arthritis: NONE 2. Height: 6 ft. 1 in. 185.4 cm. Weight: 189.0 lb. oz. 85.730 kg. Patient's BMI: 24.9 3. Vital Signs: BP: 135/89 Pulse: 59 Resp: 16 Temp: 02 Sat: 100 ECG Mon: 4. Pain Intensity: 2-3 AT REST 5. Fall Risk: Dizziness: N Needs help standing or walking: N Fallen in the last 3 months: N Fall risk comments: 6. Patient on Blood Thinner: ELIQUIS 2.5 BID 7. History of Hypertension: Y 8. Opioid Therapy greater than 6 weeks: N Opiate Contract Signed: 9. Risk Assessment Tool Provided: 0-LOW RISK 10. Functional Assessment Tool: 11. Recreational Drug Use: Never Drug Type: Tobacco Use: Never Smoker Tobacco Type: Amount or Packs/day: How Many Years: Alcohol Use: No Frequency: Quant:
== END | disposition home or self-care (01) ==
LOC: PAIN 06:55
DX: M47.817 Spondylosis without myelopathy or radiculopathy, lumbosacral region (principal); M47.816 Spondylosis without myelopathy or radiculopathy, lumbar region; M51.36 Other intervertebral disc degeneration, lumbar region; G89.29 Other chronic pain; I10 Essential (primary) hypertension; Z98.890 Other specified postprocedural states; Z79.899 Other long term (current) drug therapy; Z79.01 Long term (current) use of anticoagulants

== ENCOUNTER → 2019-10-25 | Outpatient (CLI) | payer OTHER, BC ==
[~2019-10-25] VITALS: Ht 185.4 cm; Wt 85.7 kg
[2019-10-25 13:29] VITALS: BP 104/70
--- NOTE | 2019-10-25 13:44 | NUR ---
Pain Clinic Assessment: 1. History of Osteoarthritis: LUMBAR SPINE History of Rheumatoid Arthritis: NONE 2. Height: 6 ft. 1 in. 185.4 cm. Weight: 189.0 lb. oz. 85.730 kg. Patient's BMI: 24.9 3. Vital Signs: BP: 104/70 Pulse: 68 Resp: 16 Temp: 02 Sat: 99 ECG Mon: 4. Pain Intensity: 0 SITTING 3 YARD WORK 5. Fall Risk: Dizziness: N Needs help standing or walking: N Fallen in the last 3 months: N Fall risk comments: 6. Patient on Blood Thinner: ELIQUIS 2.5 BID 7. History of Hypertension: Y 8. Opioid Therapy greater than 6 weeks: N Opiate Contract Signed: 9. Risk Assessment Tool Provided: 0-LOW RISK 10. Functional Assessment Tool: 11. Recreational Drug Use: Never Drug Type: Tobacco Use: Never Smoker Tobacco Type: Amount or Packs/day: How Many Years: Alcohol Use: No Frequency: Quant:
--- NOTE | 2019-10-26 14:03 | HPC ---
[facility] [place] [address] PAIN MANAGEMENT CONSULTATION Name: NATAANEL HERRERA Room #: REG CLMatthew Fuentes.#: [id number] Admission: 10/25/19 Attend Phys: Raz Mcclain DO Discharge: Date of : 31 Report #: [id number] THIS REPORT FOR: cc: Edwin Baer MD, Neal A. MD Johnson, James E. DO ~ DATE OF SERVICE: 10/25/2019 CHIEF COMPLAINT: Axial back pain. HISTORY OF PRESENT ILLNESS: As you know, the patient is an 89-year-old male with longstanding history of axial back pain. He was sent to our clinic to trial medial branch nerve blocks and move on with radiofrequency lesioning if successful. He has undergone the first series of medial branch nerve blocks with good efficacy. He reported improvement in symptoms almost instantaneously. He was able to return to all activities of daily living for about 6 hours. This is typical for a medial branch block. His pain subsequently returned. He is now placing pain score 3/10. He returns today in followup visit for the second in the series of medial branch blocks. If these are then successful moving forward with radiofrequency lesioning. The patient indicates today pain is in the axial back, no radiation of symptoms beyond the buttock. ALLERGIES: No known drug allergies. CURRENT MEDICATIONS: Atorvastatin, glimepiride, tamsulosin, atenolol, finasteride, torsemide, and multivitamin. SOCIAL HISTORY: The patient denies tobacco, denies IV or illicit drug use. Denies any chronic alcohol use. He is retired, retired years ago, unaccompanied today. IMAGING: No new imaging available. PQRS: The patient has known arthritic changes of the lumbar spine, bilateral hips, no rheumatoid arthritis. He is placing pain intensity today 3/10. He is not a fall risk, has not had a fall in last 3 months, but is on blood thinner in the form of Eliquis, discontinued 3 days ago in preparation for today's procedure. The patient is treated for hypertension. He is not on any opioids. He has a low opioid addiction potential. Pain impact score 20/70, [id number] interference of daily activities secondary to pain. PHYSICAL EXAMINATION: VITAL SIGNS: Blood pressure 104/70, pulse is 68, respiratory rate 16 and unlabored. The patient is 99% on room air, height 6 feet 1 inch tall, weight 189 pounds, BMI calculated 24.9. [facility] [address] [place] [address] PAIN MANAGEMENT CONSULTATION Name: NATANAEL HERRERA Room #: REG CLI [facility]#: [id number] Admission: 10/25/19 Attend Phys: Raz Mcclain DO Discharge: Date of : 31 Report #: [id number] GENERAL: Well-developed, well-nourished, well-hydrated 89-year-old male appearing stated age, pain is rated today 3/10. HEENT: Normocephalic, atraumatic. Pupils equal, round, and responsive. EXTREMITIES: Show no clubbing, no cyanosis, no edema. MUSCULOSKELETAL: Seated straight leg raising negative. Supine straight leg raising negative. Ana's test is negative. Modified Gaenslen's positive for axial low back pain. Lumbar provocation testing including extension, rotation, lateral flexion all intensify axial back pain. Pain is elicited with standing for long periods of time. ASSESSMENT: 1. Lumbosacral spondylosis without current radicular symptoms. 2. Facet arthropathy of the lumbar spine. 3. Lumbar degeneration. 4. Chronic intractable pain. PLAN: 1. The patient returns today in followup visit having noted 100% improvement in overall pain with the medial branch blocks provided at the last visit, this lasted for about 6 hours. He was able to return to all activities of daily living, even those that exacerbated his symptoms in the past. He is very pleased with response to the medial branch blocks. Returning today for the second in the series of these injections. If these injections are once again successful, then we would move forward with radiofrequency lesioning of the medial branch nerves of the lumbar spine in the 2 staged process. The patient is agreeable. He has been advised risks and benefits of this procedure, states understood and wished to proceed. 2. No medication changes made at today's visit. The patient will continue current medical therapy as previously prescribed. 3. We will see the patient back in followup visit in 1 week for possible radiofrequency lesioning of the medial branch nerves of the lumbar spine. The patient will decide to begin with, then following 2 weeks later would be the other side to complete the process. DESCRIPTION OF PROCEDURE: Bilateral L3, L4, L5 medial branch blocks under fluoroscopic guidance. This is the second of 2 diagnostic medial branch blocks on the right and left side that the patient is undergoing. After obtaining written consent, the patient was taken back to the fluoroscopy suite and placed in a prone position on the fluoroscopy table with a pillow under the abdomen to decrease the lumbar lordosis. The skin overlying the lumbosacral area was prepped and draped in an aseptic fashion. The L4 transverse process corresponding the L3 medial branch nerve and L5 transverse process corresponding the L4 medial branch nerve on the right and left side was [address] [address] PAIN MANAGEMENT CONSULTATION Name: NATANAEL HERRERA [facility] [id number] Admission: 10/25/19 Attend Phys: Raz Mcclain DO Discharge: Date of : 31 Report #: [id number] visualized under AP fluoroscopy. The skin and subcutaneous tissue overlying the target sites of injection were anesthetized using 2 mL of 1% lidocaine. A 22-gauge 3.5 inch spinal needle with a bent tip was advanced under fluoroscopic guidance using a superior to inferior and lateral to medial approach to the dorsal, superior and medial aspect of the base of the transverse processes. The needles were then directed ventral, medial and caudad to reach the target locations. An oblique view facilitated needle placement with properly positioned needles in the middle of the "eye" of the [place] dog for the medial branch blocks. At each site the needles rested on periosteum. After negative aspiration for heme or CSF, 0.1 mL of Omnipaque dye was injected at each site under live fluoroscopy, demonstrating absence of vascular uptake. After negative aspiration for heme or CSF, 0.5 mL of bupivacaine 0.5% was slowly injected at each site to avoid forcing the solution away from the target points. The needles were then removed. The L5 dorsal ramus block on the right and left side was performed using a slightly oblique approach under fluoroscopic guidance, placing the needle within the groove between the sacral site and the superior articular process of S1. The needle rested on periosteum. After negative aspiration for heme or CSF, 0.1 mL of Omnipaque dye was injected at under live fluoroscopy, demonstrating absence of vascular uptake. After negative aspiration for heme or CSF, 0.5 mL of bupivacaine 0.5% was slowly injected to avoid forcing the solution away from the target point. The needle was then removed. Sterile bandages were placed over the injection site. There were no apparent complications. The patient tolerated the procedure well and was carefully escorted to the recovery room in stable condition. The VAS was 3/10 before the procedure and 2/10 10 minutes after the procedure. After meeting discharge criteria, the patient was discharged home. <ELECTRONICALLY SIGNED> By: Raz Mcclain DO 10/26/19 1403 [id number] [id number] Raz Mcclain DO /nt
== END | disposition home or self-care (01) ==
LOC: PAIN 07:02
PROVIDERS: ATTEND Anesthesiology Pain Medicine
DX: M47.817 Spondylosis without myelopathy or radiculopathy, lumbosacral region (principal); M47.816 Spondylosis without myelopathy or radiculopathy, lumbar region; M51.36 Other intervertebral disc degeneration, lumbar region; G89.29 Other chronic pain; M19.90 Unspecified osteoarthritis, unspecified site; I12.9 Hypertensive chronic kidney disease with stage 1 through stage 4 chronic kidney disease, or unspecified chronic kidney disease; N18.9 Chronic kidney disease, unspecified; Z98.890 Other specified postprocedural states; Z79.899 Other long term (current) drug therapy; Z79.01 Long term (current) use of anticoagulants

== ENCOUNTER → 2019-11-01 | Outpatient (CLI) | payer OTHER, BC ==
[~2019-11-01] VITALS: Ht 185.4 cm; Wt 86.1 kg
[2019-11-01 07:55] VITALS: BP 121/77
--- NOTE | 2019-11-01 08:00 | NUR ---
Pain Clinic Assessment: 1. History of Osteoarthritis: LUMBAR SPINE HANDS History of Rheumatoid Arthritis: NONE 2. Height: 6 ft. 1 in. 185.4 cm. Weight: 189.8 lb. oz. 86.093 kg. Patient's BMI: 25.0 3. Vital Signs: BP: 121/77 Pulse: 66 Resp: 18 Temp: 02 Sat: 100 ECG Mon: 4. Pain Intensity: 1-2 5. Fall Risk: Dizziness: N Needs help standing or walking: N Fallen in the last 3 months: N Fall risk comments: 6. Patient on Blood Thinner: ELIQUIS 2.5 BID 7. History of Hypertension: Y 8. Opioid Therapy greater than 6 weeks: N Opiate Contract Signed: 9. Risk Assessment Tool Provided: 0-LOW RISK 10. Functional Assessment Tool: 11. Recreational Drug Use: Never Drug Type: Tobacco Use: Never Smoker Tobacco Type: Amount or Packs/day: How Many Years: Alcohol Use: No Frequency: Quant:
--- NOTE | 2019-11-08 09:19 | HPC ---
[facility] [place] [address] PAIN MANAGEMENT CONSULTATION Name: NATANAEL HERRERA Room #: REG CLI [facility].#: [id number] Admission: 11/01/19 Attend Phys: Raz Mcclain DO Discharge: Date of : 31 Report #: [id number] THIS REPORT FOR: cc: Edwin Baer MD, Neal A. MD Johnson, James E. DO ~ DATE OF SERVICE: 11/01/2019 CHIEF COMPLAINT: Axial back pain. HISTORY OF PRESENT ILLNESS: As you know, the patient is a pleasant 89-year-old male, who has longstanding history of axial back pain. He was sent to our clinic to trial medial branch nerve blocks and possible radiofrequency lesioning. The patient has undergone medial branch blocks x 2 bilaterally, which provided excellent benefit in overall symptoms, rating pain near completely relieved for 6 hours with each injection. He returns today to undergo radiofrequency lesioning of the medial branch nerves of the lumbar spine. He has chosen to undergo the left side initially with plans to undergo the right side in 2 weeks. The patient reports today pain level of around 1-2/10. He returns today for left L3, L4, L5 medial branch radiofrequency lesioning. ALLERGIES: No known drug allergies. CURRENT MEDICATIONS: Atorvastatin, glimepiride, tamsulosin, atenolol, finasteride, torsemide, and multivitamin. SOCIAL HISTORY: The patient denies tobacco, denies IV or illicit drug use. Denies any chronic alcohol use. He is retired, retired years ago, unaccompanied today. IMAGING: No new imaging available. PQRS: The patient has known arthritic changes of the lumbar spine, bilateral hips, no rheumatoid arthritis. He is placing pain score 1-2/10. He is not a fall risk, has not had a fall in last 3 months. He is on blood thinners in the form of Eliquis, but has discontinued the medication in preparation for today's procedure. He is treated for hypertension. He is not on chronic opioids, has a low opioid addiction potential. Pain impact score is 20/70 indicating mild interference of daily activities secondary to pain. PHYSICAL EXAMINATION: VITAL SIGNS: Blood pressure 121/77, pulse 66, respiratory rate 18 and unlabored. The patient is 100% on room air, height 6 feet 1 inch tall, weight 189.8 pounds, BMI calculated 25.0. [facility] [address] [place] [address] PAIN MANAGEMENT CONSULTATION Name: NATANAEL HERRERA Room #: REG CLI [facility]#: [id number] Admission: 11/01/19 Attend Phys: Raz Mcclain DO Discharge: Date of : 31 Report #: [id number] GENERAL: Well-developed, well-nourished, well-hydrated 89-year-old male. He appears stated age, pain is rated today 2/10. HEENT: Normocephalic, atraumatic. Pupils are equal and round. Speech is fluent. EXTREMITIES: Show no clubbing, no cyanosis, no edema. MUSCULOSKELETAL: Palpatory tenderness is once again noted over the paraspinal musculature of lower lumbar spine, left greater than right. Modified Gaenslen's positive for axial low back pain. Lumbar provocation testing including extension, rotation, lateral flexion all intensify axial back pain, left greater than right. ASSESSMENT: 1. Lumbosacral spondylosis without radiculopathy. 2. Facet arthropathy of the lumbar spine. 3. Lumbar degeneration. 4. Chronic intractable pain. PLAN: 1. The patient returns today in followup visit to undergo radiofrequency lesioning of the left L3, L4, L5 medial branch nerves. The patient has been advised of the risks and the benefits of this procedure. These risks include, but are not necessarily limited to bleeding, bruising, infection, worsening pain, no relief of pain, also risk of temporary or permanent muscle weakness, temporary or permanent nerve damage that has inadvertent, possible paralysis and . The patient states understood and wished to proceed. 2. No medication changes made at today's visit. We recommend the patient restart his Eliquis today and continue the medication until 3 days prior to our radiofrequency lesioning of the right side. 3. We will see the patient back in followup visit in approximately 2 weeks for radiofrequency of the right L3, L4 and L5 medial branch nerves. PROCEDURE NOTE DESCRIPTION OF PROCEDURE: Left L3, L4, L5 medial branch radiofrequency lesioning. The procedure was explained and informed consent was obtained from the patient. The patient was informed of the risks of procedure including infection, bleeding, nerve damage, failure to produce pain relief and postoperative discomfort lasting for several weeks. The patient understands the risks and wishes to proceed. The patient was then taken to the fluoroscopy suite, placed in prone position with pillow under abdomen to decrease lumbar lordosis. Skin overlying lumbosacral area then prepped and draped in aseptic fashion. [facility] [address] [place] [address] PAIN MANAGEMENT CONSULTATION Name: NATANAEL HERRERA Room #: REG CLMatthew Cardenas#: [id number] Admission: 11/01/19 Attend Phys: Raz Mcclain DO Discharge: Date of : 31 Report #: [id number] An AP imaging of the lumbar spine was used to identify the L2 through L5 vertebral bodies and the sacral ala. The target locations of the left side of the L4 transverse process corresponding the L3 medial branch nerve and the L5 transverse process corresponding the L4 medial branch nerve were established. Using a 25-gauge 1-1/4 inch needle, skin wheals were placed at the junction of the transverse process and the respective superior articular process with 1 mL of 1% lidocaine. We were careful to only anesthetize skin and not the deep tissue. The radiofrequency lesioning needles were then advanced under fluoroscopic guidance using a superior, inferior, lateral to medial approach to the dorsal superior and medial aspect of the base of the transverse processes. The needles were then directed caudad to reach target location. Oblique view facilitated needle placement with properly positioned needles within the middle of the "eye" of the [place] dog. At each site, needles rested on periosteum. Touching bone initially assured the needles were not placed too deeply. Radiofrequency lesioning of the L5 medial branch nerve on the left side was performed using a superior, inferior, lateral to medial approach. This was done under fluoroscopic guidance, placing the needle within the groove between the sacral ala and the superior articular process of S1. The needle rested on periosteum. Stimulation was performed at each level once the cannulas were in position. Stimulation was performed at 0.4, 0.4, and 0.2 with impedance of 360, 200 and 303 for the L3, L4, L5 medial branches respectively. Good stimulation of the lumbar and buttock region was elicited indicating correct alignment with the posterior primary ramus. Absence of lower motor fasciculation was noted at 3 volts 2 Hz stimulation during testing of the L3, L4, L5 medial branch nerves respectively. Following this, affirmation of disassociation between sensory and motor stimulation, negative aspiration for heme or cerebrospinal fluid was noted at each level. Next, 1 mL bupivacaine 0.5% was injected at each site. After a 90-second delay, lesions were performed at a temperature of 80 degrees Celsius for a total of 90 seconds. Once the needle tips had cooled, 1 mL of a solution containing 1 mL 40 mg per mL, 40 mg total triamcinolone along with 3 mL bupivacaine 0.5% was injected slowly. Needle retracted approximately half way, flushed with 1 mL of 1% lidocaine and removed. Sterile bandages were placed over each of the injection sites. The patient was able to move all 4 extremities purposefully after procedure. The patient tolerated the procedure well, carefully escorted to recovery room in stable condition. No apparent complications. After meeting discharge criteria, the patient discharged home. <ELECTRONICALLY SIGNED> By: Raz Mcclain DO 11/08/19 0919 [id number] Raz Mcclain DO /nt
== END | disposition home or self-care (01) ==
LOC: PAIN 06:52
PROVIDERS: ATTEND Anesthesiology Pain Medicine
DX: M47.817 Spondylosis without myelopathy or radiculopathy, lumbosacral region (principal); M47.816 Spondylosis without myelopathy or radiculopathy, lumbar region; M51.36 Other intervertebral disc degeneration, lumbar region; G89.29 Other chronic pain; I10 Essential (primary) hypertension; M16.0 Bilateral primary osteoarthritis of hip; Z98.890 Other specified postprocedural states; Z79.899 Other long term (current) drug therapy; Z79.01 Long term (current) use of anticoagulants

== ENCOUNTER → 2019-11-22 | Outpatient (CLI) | payer OTHER, BC ==
[~2019-11-22] VITALS: Ht 185.4 cm; Wt 83.9 kg
[2019-11-22 12:32] VITALS: BP 121/74
--- NOTE | 2019-11-22 12:37 | NUR ---
Pain Clinic Assessment: 1. History of Osteoarthritis: LUMBAR SPINE HANDS History of Rheumatoid Arthritis: NONE 2. Height: 6 ft. 1 in. 185.4 cm. Weight: 185.0 lb. oz. 83.916 kg. Patient's BMI: 24.4 3. Vital Signs: BP: 121/74 Pulse: 81 Resp: 16 Temp: 02 Sat: 98 ECG Mon: 4. Pain Intensity: 1-2 5. Fall Risk: Dizziness: N Needs help standing or walking: N Fallen in the last 3 months: N Fall risk comments: 6. Patient on Blood Thinner: ELIQUIS 2.5 BID 7. History of Hypertension: Y 8. Opioid Therapy greater than 6 weeks: N Opiate Contract Signed: 9. Risk Assessment Tool Provided: 0-LOW RISK 10. Functional Assessment Tool: 11. Recreational Drug Use: Never Drug Type: Tobacco Use: Never Smoker Tobacco Type: Amount or Packs/day: How Many Years: Alcohol Use: No Frequency: Quant:
--- NOTE | 2019-11-29 14:07 | HPC ---
[facility] [address] [place] [address] PAIN MANAGEMENT CONSULTATION Name: NATANAEL HERRERA Room #: REG CLI [facility]renScar.#: [id number] Admission: 11/22/19 Attend Phys: Raz Mcclain DO Discharge: Date of : 32 Report #: [id number] THIS REPORT FOR: cc: Edwin Baer MD, Neal A. MD Johnson, James E. DO ~ DATE OF SERVICE: 11/22/2019 REFERRING PHYSICIAN: Edwin Baer MD CHIEF COMPLAINT: Axial back pain. HISTORY OF PRESENT ILLNESS: As you know, the patient is a very pleasant 89-year-old male with longstanding history of axial back pain issues. He was sent to our clinic to trial medial branch nerve blocks and possible radiofrequency lesioning. He successfully completed medial branch blocks x 2 with good benefit. He has returned on 11/01/2019 undergoing a right L3, L4, L5 radiofrequency lesioning with greater than 50% improvement in overall pain. He returns today in followup visit to complete the radiofrequency lesioning on the left side to address the L3, L4, L5 medial branch nerves. The patient is placing pain today at a level of 1-2/10. He has discontinued his Eliquis 3 days prior to today's procedure to undergo this treatment. The patient denies new injury, new trauma or any changes in medical history since our last visit. ALLERGIES: No known drug allergies. CURRENT MEDICATIONS: Atorvastatin, glimepiride, tamsulosin, atenolol, finasteride, torsemide, and multivitamins. SOCIAL HISTORY: The patient denies tobacco, IV or illicit drug use. Denies any chronic alcohol use. He is retired, retired years ago, unaccompanied today. IMAGING: No new imaging available. PQRS: The patient has known arthritic changes of the lumbar spine, bilateral hips, but has no diagnosis of rheumatoid arthritis. He is placing current pain score 1-2/10. He is not a fall risk, has not had a fall in last 3 months. He is on blood thinners, but has discontinued the medication 3 days prior to today's procedure. He is treated for hypertension. He is not on any opioids, has a low opioid addiction potential based on our assessment tool. Pain impact is 28/70, [id number] interference of daily activities secondary to pain. PHYSICAL EXAMINATION: VITAL SIGNS: Blood pressure 121/74, pulse is 81, respiratory rate 16 and unlabored. The patient is 98% on room air, height 6 feet 1 inch tall, weight [address] [address] PAIN MANAGEMENT CONSULTATION Name: NATANAEL HERRERA IRENE [id number] Admission: 11/22/19 Attend Phys: Raz Mcclain DO Discharge: Date of : 31 Report #: [id number] 185 pounds, BMI calculated 24.4. GENERAL: Well-developed, well-nourished, well-hydrated an 89-year-old male, appears his stated age. Current pain score is 1-2/10. HEENT: Normocephalic, atraumatic. Pupils equal, round and reactive. Speech is fluent. EXTREMITIES: Show no clubbing, no cyanosis, no edema. MUSCULOSKELETAL: There is palpatory tenderness noted over the paraspinal musculature of lower lumbar spine. No spinous process tenderness. Pain is mostly on the right side. He has negative left findings. He has positive lumbar provocation testing with extension, rotation, lateral flexion to the right, negative left. ASSESSMENT: 1. Lumbosacral spondylosis without radiculopathy. 2. Facet arthropathy of the lumbar spine. 3. Lumbar degeneration. 4. Chronic intractable pain. PLAN: 1. The patient returns today in followup visit to undergo radiofrequency lesioning of the right L3, L4 and L5 medial branch nerves. He has done very well with previous injection series on the left, which provided greater than 50% improvement in overall pain based on the patient's report today. He returns today to undergo right L3, L4, L5 radiofrequency lesioning to complete the lesioning process in addressing the final set of medial branch nerves in the lumbar region. The patient has been advised risks and benefits of the procedure, states understood and wished to proceed. 2. No medication changes made at today's visit. The patient will continue current medical therapy as prior prescribed. 3. We will see the patient back in followup visit on an as needed basis. We wish the patient well and hope that he sees good and prolonged benefit with the completion of the radiofrequency lesioning. DESCRIPTION OF PROCEDURE: Right L3, L4, L5 medial branch radiofrequency lesioning under fluoroscopic guidance. The procedure was explained. Informed consent was obtained from the patient. The patient was informed of the risks of the procedure including infection, nerve damage, bleeding, failure to produce pain relief and postoperative discomfort lasting for several weeks. The patient understood his risks and wished to proceed. The patient was then taken to the fluoroscopy suite, placed in prone position with pillow under abdomen to decrease lumbar lordosis. Skin overlying lumbosacral area then prepped and draped in aseptic fashion. AP imaging of the lumbar spine was used to identify the L2 through L5 vertebral bodies and the [address] [address] PAIN MANAGEMENT CONSULTATION Name: NATANAEL HERRERA [id number] Admission: 11/22/19 Attend Phys: Raz Mcclain DO Discharge: Date of : 31 Report #: [id number] sacral ala. Target locations on the right side of the L4 transverse process corresponding the L3 medial branch nerve and the L5 transverse process corresponding the L4 medial branch nerve were established. Using a 27-gauge, 1-1/4 inch needle, skin wheals were placed at the junction of the transverse process and the respective superior articular process with 1 mL of 1% lidocaine. We were careful to only anesthetize skin and not the deep tissue. Radiofrequency lesioning needles were then advanced under fluoroscopic guidance using a superior, inferior, lateral to medial approach to the dorsal superior and medial aspect of the base of the transverse processes. The needles were then directed caudad to reach target location. Oblique view facilitated needle placement with properly positioned needles within the middle of the "eye" of the [place] dog. At each site, needles rested on periosteum. Touching the bone initially assured the needles were not placed too deeply. Radiofrequency lesioning of the L5 medial branch nerve on the right side was performed using a superior, inferior, lateral to medial approach. This was done with the aid of fluoroscopic guidance, placing the needle within the groove between the sacral ala and the superior articular process of S1. Needle rested on periosteum. Stimulation was performed at each level once the cannulas were in position. Stimulation was performed at 0.3, 0.5, 0.2 with impedance of 350, 302, and 370 for the L3, L4, L5 medial branch nerves respectively. Good stimulation of the lumbar and buttock region was elicited indicating correct alignment with the posterior primary ramus. Absence of lower motor fasciculation was noted at 3 volts 2 Hz stimulation during the testing of the L3, L4, L5 medial branch nerves respectively. Following this, affirmation of disassociation between sensory and motor stimulation, negative aspiration for heme or cerebrospinal fluid was noted at each level. Next, 1 mL bupivacaine 0.5% was injected slowly at each site. After a 90-second delay, lesions were performed at temperature of 80 degrees Celsius for 90 seconds. Once the needle tips had cooled, 1 mL of a solution containing 1 mL 40 mg per mL, 40 mg total triamcinolone along with 3 mL of bupivacaine 0.5% was injected slowly. Ponce retracted mcfp, flushed with 1 mL of 1% lidocaine and removed. Sterile bandage placed over each of the injection sites. The patient was able to move all 4 extremities purposefully after procedure. The patient tolerated procedure well, carefully escorted to recovery room in stable condition. No apparent complications. After meeting discharge criteria, the patient discharged home. <ELECTRONICALLY SIGNED> By: Raz Mcclain DO 11/29/19 1407 1205 1305 Raz Mcclain DO /nt
== END | disposition home or self-care (01) ==
LOC: PAIN 06:53
PROVIDERS: ATTEND Anesthesiology Pain Medicine
DX: M47.817 Spondylosis without myelopathy or radiculopathy, lumbosacral region (principal); G89.29 Other chronic pain; N18.9 Chronic kidney disease, unspecified; Z79.899 Other long term (current) drug therapy; Z88.8 Allergy status to other drugs, medicaments and biological substances; Z98.890 Other specified postprocedural states

== ENCOUNTER → 2020-03-15 | Outpatient (CLI) | payer OTHER, BC | LOC: LAB 14:27 | PROVIDERS: ATTEND Family Medicine | DX: R05 Cough (principal); Z20.828 Contact with and (suspected) exposure to other viral communicable diseases ==

== ENCOUNTER → 2020-04-02 | Outpatient (CLI) | payer OTHER, BC | LOC: SJCVC 14:05 | PROVIDERS: ATTEND Internal Medicine Cardiovascular Disease | DX: I48.0 Paroxysmal atrial fibrillation (principal); R94.31 Abnormal electrocardiogram [ECG] [EKG]; I25.10 Atherosclerotic heart disease of native coronary artery without angina pectoris; E78.00 Pure hypercholesterolemia, unspecified; I25.5 Ischemic cardiomyopathy; E11.22 Type 2 diabetes mellitus with diabetic chronic kidney disease; I12.9 Hypertensive chronic kidney disease with stage 1 through stage 4 chronic kidney disease, or unspecified chronic kidney disease; N18.9 Chronic kidney disease, unspecified; D68.59 Other primary thrombophilia; I35.0 Nonrheumatic aortic (valve) stenosis; Z79.899 Other long term (current) drug therapy ==

== ENCOUNTER 2020-10-01 13:47 | Emergency (ER) | payer OTHER, BC ==
[~2020-10-01] VITALS: Ht 185.4 cm; Wt 83.9 kg
[2020-10-01 14:26] LABS: BASOPHILS 0.2 % (0.0-2.0); EOSINOPHILS 0.4 % (0.0-3.0); HEMOGLOBIN 14.2 gm/dL (14.0-18.0); LYMPHOCYTES 1.3 % (24.0-44.0); MCH 32.1 pg (26.0-34.0); MCV 97.3 fL (80.0-100.0); PLATELET COUNT 135 thou/uL (150-400); POLYS 95.1 % (36.0-66.0); RBC 4.42 mil/uL (4.50-6.00); RDW 15.7 % (10.5-14.5); WBC 11.6 thou/uL (4.0-11.0)
[2020-10-01 14:43] LABS: CREATININE 1.8 mg/dL (0.7-1.3)
[2020-10-01 14:48] LABS: ALBUMIN 3.6 g/dL (3.4-5.0); TOTAL PROTEIN 7.3 g/dL (6.4-8.2)
[2020-10-01 15:48] LABS: URINE BILIRUBIN NEGATIVE (Negative); URINE BLOOD TRACE (Negative); URINE CLARITY CLEAR; URINE COLOR YELLOW; URINE GLUCOSE-RANDOM* TRACE (Negative); URINE KETONES TRACE (Negative); URINE LEUKOCYTES-REFLEX NEGATIVE (Negative); URINE NITRITE-REFLEX NEGATIVE (Negative); URINE PROTEIN (DIPSTICK) NEGATIVE (Negative); URINE UROBILINOGEN 0.2 E.U./dl (0.2-1.0)
[2020-10-01] MEDS ORDERED: ZOFRAN ODT4 MG PO (16:21)
[2020-10-01 16:53] VITALS: BP 157/93
--- NOTE | 2020-10-01 17:37 | EKG ---
[place] [address] [facility] [place] [address] ELECTROCARDIOGRAM REPORT Name: NATANAEL HERRERA [facility]: [facility] [id number] Admission: 10/01/20 Attend Phys: Discharge: Date of : 31 Report #: [id number] [facility] ED Test Date: 2020-10-01 Test Time: 15:00:52 Pat Name: NATANAEL HERRERA Department: Room: Gender: M Courtesy Driver: YURY : 1930 Requested By: Leobardo Middleton Order Number: [id number] MD: Jackson Crawford Measurements Intervals [place] Rate: 108 P: GA: QRS: -12 QRSD: 90 T: 16 QT: 361 QTc: 484 Interpretive Statements Atrial fibrillation Low voltage, extremity leads Abnormal R-wave progression, early transition Nonspecific ST segment abnormality Compared to ECG 02/22/2017 11:38:[address] change in the ST segments Electronically Signed On 10-01-2020 17:37:08 CDT by Jackson Crawford [email or web address] <ELECTRONICALLY SIGNED> By: Jackson Crawford MD, [facility] 10/01/20 1737 1500 [id number] Jackson Crawford MD, FACC /EPI
== END 2020-10-01 17:00 | disposition home or self-care (01) ==
LOC: ER 13:47
PROVIDERS: Emergency Medicine
DX: R11.2 Nausea with vomiting, unspecified (principal); Z20.822 Contact with and (suspected) exposure to COVID-19; R19.7 Diarrhea, unspecified; N18.9 Chronic kidney disease, unspecified; I48.91 Unspecified atrial fibrillation; Z79.899 Other long term (current) drug therapy

== ENCOUNTER → 2020-11-05 | Outpatient (CLI) | payer OTHER, BC ==
[~2020-11-05] MED LIST changes: +ZOFRAN ODT4 MG PO
== END ==
LOC: SJCVCIMAG 13:15
PROVIDERS: ATTEND Internal Medicine Cardiovascular Disease
DX: R94.31 Abnormal electrocardiogram [ECG] [EKG] (principal); I08.0 Rheumatic disorders of both mitral and aortic valves; I48.91 Unspecified atrial fibrillation; I25.10 Atherosclerotic heart disease of native coronary artery without angina pectoris; E78.00 Pure hypercholesterolemia, unspecified; E11.22 Type 2 diabetes mellitus with diabetic chronic kidney disease; I13.0 Hypertensive heart and chronic kidney disease with heart failure and stage 1 through stage 4 chronic kidney disease, or unspecified chronic kidney disease; N18.9 Chronic kidney disease, unspecified; I25.5 Ischemic cardiomyopathy; I25.2 Old myocardial infarction; Z85.46 Personal history of malignant neoplasm of prostate; Z72.89 Other problems related to lifestyle

== ENCOUNTER → 2021-05-13 | Outpatient (CLI) | payer OTHER, BC | LOC: SJCVC 12:50 | PROVIDERS: ATTEND Internal Medicine Cardiovascular Disease | DX: R94.31 Abnormal electrocardiogram [ECG] [EKG] (principal); I25.10 Atherosclerotic heart disease of native coronary artery without angina pectoris; I35.0 Nonrheumatic aortic (valve) stenosis; I48.91 Unspecified atrial fibrillation; I25.5 Ischemic cardiomyopathy; D68.59 Other primary thrombophilia; I13.0 Hypertensive heart and chronic kidney disease with heart failure and stage 1 through stage 4 chronic kidney disease, or unspecified chronic kidney disease; N18.9 Chronic kidney disease, unspecified; I50.33 Acute on chronic diastolic (congestive) heart failure; E78.5 Hyperlipidemia, unspecified; C61 Malignant neoplasm of prostate; F41.9 Anxiety disorder, unspecified; I65.23 Occlusion and stenosis of bilateral carotid arteries; Z72.89 Other problems related to lifestyle; Z79.899 Other long term (current) drug therapy ==